=== PATIENT | male | born 1940 | race Two or more races ===

== ENCOUNTER → 2017-01-11 | Outpatient (CLI) | payer MEDICARE, BC ==
--- NOTE | 2017-01-11 09:53 | RAD ---
EXAM: Chest 2 views. HISTORY: Cough and fever. Lymphoma. COMPARISON: 07/03/2012. FINDINGS: Frontal and lateral views of the chest are obtained. There are changes of coronary artery bypass grafting. Portable a sample thickening on the left are not clearly changed. Airspace opacities in the left base may represent scarring and also appears stable. The right lung is clear. There is no pneumothorax. The heart is mildly enlarged. IMPRESSION: 1. Chronic left pleural thickening, left basilar scarring and left volume loss. 2. Mild cardiomegaly.
== END | disposition home or self-care (01) ==
LOC: DXRADRC 09:34
PROVIDERS: ATTEND Physician Assistant
DX: I51.7 Cardiomegaly (principal); J98.4 Other disorders of lung; R09.89 Other specified symptoms and signs involving the circulatory and respiratory systems; R05 Cough; R50.9 Fever, unspecified; Z95.1 Presence of aortocoronary bypass graft
CPT/HCPCS: 71020